=== PATIENT | male | born 1975 | race American Indian/Alaskan Native ===

== ENCOUNTER 2020-10-31 17:30 | Emergency (ER) | payer OTHER ==
[2020-10-31 17:46] VITALS: BP 152/100
--- NOTE | 2020-10-31 19:31 | Event Note ---
ED Screening Note Date of service: 10/31/20 Time: 19:28 ED Screening Note: 45-year-old -[place] male with no past medical history presents to the emergency room reporting dizziness and near syncopal moment. Patient states that this happened earlier today. He has had this happen in the past along long time ago. He denies any past medical history. He denies any fall no fever no chills. He does admit to tingling all over. Currently takes no medications on a daily basis has no known drug allergies. Family history of hypertension. This initial assessment/diagnostic orders/clinical plan/treatment(s) is/are subject to change based on patients health status, clinical progression and re- assessment by fellow clinical providers in the ED. Further treatment and workup at subsequent clinical providers discretion. Patient/guardian urged not to elope from the ED as their condition may be serious if not clinically assessed and managed. Initial orders include:
[2020-10-31 20:04] LABS: Basophils # (Auto) 0.1 K/mm3 (0.0-0.1); Basophils % (Auto) 0.6 % (0.0-1.8); Eosinophils # (Auto) 0.1 K/mm3 (0.0-0.4); Eosinophils % (Auto) 1.1 % (0.0-4.3); Hematocrit 48.4 % (35.5-45.6); Hemoglobin 16.7 gm/dl (11.8-15.2); Lymphocytes # (Auto) 1.2 K/mm3 (1.2-5.4); Lymphocytes % (Auto) 13.2 % (13.4-35.0); Mean Corpuscular HGB Conc 35 % (32-34); Mean Corpuscular Volume 93 fl (84-94); Monocytes # (Auto) 0.5 K/mm3 (0.0-0.8); Monocytes % (Auto) 6.1 % (0.0-7.3); Platelet Count 178 K/mm3 (140-440); Red Blood Count 5.23 M/mm3 (3.65-5.03); Red Cell Distribution Width 13.2 % (13.2-15.2)
[2020-10-31 20:25] LABS: Creatine Kinase MB 1.5 ng/mL (0.0-4.0)
[2020-10-31 20:27] LABS: Alanine Aminotransferase 20 units/L (7-56); Albumin 4.4 g/dL (3.9-5); BUN/Creatinine Ratio 14; Blood Urea Nitrogen 11 mg/dL (9-20); Calcium 9.4 mg/dL (8.4-10.2); Hemolysis Index 38
[2020-10-31 20:48] LABS: Bilirubin,Urine NEG (Negative); Blood,Urine NEG (Negative); Color,Urine Straw (Yellow); Protein,Urine <15 mg/dL mg/dL (Negative); RBC,Urine < 1.0 /HPF (0.0-6.0); Urobilinogen,Urine < 2.0 mg/dL (<2.0)
[2020-10-31 20:50] LABS: WBC,Urine < 1.0 /HPF (0.0-6.0)
[2020-10-31 20:54] LABS: Amphetamine Screen,Urine Negative; Benzodiazepines Screen,Urine Negative; Cannabinoid Screen,Urine Negative; Cocaine Screen,Urine Negative; Methadone Screen,Urine Negative; Opiate Screen,Urine Negative
--- NOTE | 2020-11-01 11:44 | Electrocardiograph Report ---
[facility] Test Date: 2020-10-31 Test Time: 17:55:18 Pat Name: ANA KING Department: Room: Gender: M Sternman: PAOLA : 1975 Requested By: MATTHEW GUNN Order Number: [id number] Reading MD: Munira Carlos Measurements Intervals [place] Rate: 73 P: 13 CO: 150 QRS: -4 QRSD: 94 T: 59 QT: 374 QTc: 413 Interpretive Statements Sinus rhythm Normal ECG No previous ECG available for comparison Electronically Signed On 11-01-2020 11:43:53 EDT by Munira Carlos
== END 2020-11-01 05:00 | disposition left against medical advice (07) ==
LOC: ED 17:30
DX: R55 Syncope and collapse (principal); Z53.21 Procedure and treatment not carried out due to patient leaving prior to being seen by health care provider
CPT/HCPCS: 36415; 80053; 80307; 81001; 82550; 82553; 84484; 85025; 93005

== ENCOUNTER 2020-11-01 13:47 | Emergency (ER) | payer OTHER ==
[2020-11-01 14:04] VITALS: BP 131/86
--- NOTE | 2020-11-01 16:41 | Emergency Department Report ---
ED General Adult HPI - General Chief complaint: Dizziness Stated complaint: LIGHTHEADED/DIZZY Time Seen by Provider: 11/01/20 16:26 Source: patient Mode of arrival: Ambulatory Limitations: No Limitations - History of Present Illness Initial comments: Patient is a 45-year-old male who presents emergency room with complaints of intermittent episodes of lightheadedness that have been ongoing for 2 years. He states that it felt like it got a little worse yesterday and that is why he presented to the emergency department. He states that he has been seen for this complaint multiple times. He states that he went to a [facility] 2 years ago and was advised everything was normal. He states he has an upcoming appointment with his primary care doctor. He states that he left before being seen in the emergency department yesterday and presents today for results of his test. He states he feels much better today and does not have any significant dizziness or lightheadedness. He denies any syncope, headache, vomiting, diarrhea, fever, cough, shortness of breath, chest pain, abdominal pain, numbness, weakness, speech disturbance, gait disturbance, vision changes. He denies any recent travel, sick contacts, recent surgery, recent immobilization. Past medical history of asthma. No allergies medications. Patient had a full work-up in the emergency department yesterday 10/31/2020, EKG was within normal limits, no signs of arrhythmia, labs were normal, normal troponin, normal CK/CK-MB, normal electrolytes, no anemia, UA within normal limits, no signs of dehydration, UDS was negative. - Related Data Allergies Allergy/AdvReac Type Severity Reaction Status Date / Time No Known Allergies Allergy Unverified 10/31/20 17:41 ED Review of Systems ROS: Stated complaint: LIGHTHEADED/DIZZY Other details as noted in HPI Comment: All other systems reviewed and negative ED Past Medical Hx - Past Medical History Hx Asthma: Yes - Surgical History Past Surgical History?: No ED Physical Exam - General Limitations: No Limitations General appearance: alert, in no apparent distress - Head Head exam: Present: atraumatic, normocephalic - Eye Eye exam: Present: normal appearance, PERRL, EOMI. Absent: conjunctival injection, periorbital swelling, periorbital tenderness Pupils: Present: normal accommodation - ENT ENT exam: Present: mucous membranes moist - Neck Neck exam: Present: normal inspection, full ROM. Absent: tenderness, meningismus - Respiratory Respiratory exam: Present: normal lung sounds bilaterally. Absent: respiratory distress, wheezes, rales, rhonchi, stridor, chest wall tenderness, accessory mus kenny use, decreased breath sounds, prolonged expiratory - Cardiovascular Cardiovascular Exam: Present: regular rate, normal rhythm, normal heart sounds. Absent: systolic murmur, diastolic murmur, rubs, gallop - Neurological Exam Neurological exam: Present: alert, oriented X3, CN II-XII intact, normal gait. Absent: motor sensory deficit - Expanded Neurological Exam Expanded Patient oriented to: Present: person, place, time Speech: Present: fluid speech Cranial nerves: EOM's Intact: Normal, Gag Reflex: Normal, Facial Sensation: Normal Cerebellar function: Finger to Nose: Normal, Heel to Chen: Normal, Romberg: Normal Sensory exam: Upper Extremity Light Touch: Normal, Upper Extremity Pin Prick: Normal, Upper Extremity Temperature: Normal, UE 2 Point Discrimination: Normal, Lower Extremity Light Touch: Normal, Lower Extremity Pin Prick: Normal, Lower Extremity Temperature: Normal, LE 2 Point Discrimination: Normal Motor strength exam: RUE: 5, LUE: 5, RLE: 5, LLE: 5 Best Eye Response ([place]): (4) open spontaneously Best Motor Response ([place]): (6) obeys commands Best Verbal Response ([place]): (5) oriented [place] Total: 15 - Psychiatric Psychiatric exam: Present: normal affect, normal mood - Skin Skin exam: Present: warm, dry, intact ED Course Vital Signs 11/01/20 14:03 Temperature 98.6 F Pulse Rate 85 Respiratory 17 Rate Blood Pressure 131/86 [Right] O2 Sat by Pulse 97 Oximetry ED Medical Decision Making - Medical Decision Making Patient is a 45-year-old male who presents emergency room with complaints of intermittent episodes of lightheadedness that have been ongoing for 2 years. He states that it felt like it got a little worse yesterday and that is why he presented to the emergency department. He states that he has been seen for this complaint multiple times. He states that he went to a [facility] 2 years ago and was advised everything was normal. He states he has an upcoming appointment with his primary care doctor. He states that he left before being seen in the emergency department yesterday and presents today for results of his test. He states he feels much better today and does not have any significant dizziness or lightheadedness. He denies any syncope, headache, vomiting, diarrhea, fever, cough, shortness of breath, chest pain, abdominal pain, numbness, weakness, speech disturbance, gait disturbance, vision changes. He denies any recent travel, sick contacts, recent surgery, recent immobilization. Past medical history of asthma. No allergies medications. Patient had a full work-up in the emergency department yesterday 10/31/2020, EKG was within normal limits, no signs of arrhythmia, labs were normal, normal troponin, normal CK/CK- MB, normal electrolytes, no anemia, UA within normal limits, no signs of dehydration, UDS was negative. Patient's vitals are normal. He is currently asymptomatic. He has no neurological deficits on exam. Will be referred to primary care doctor and [facility]. Discuss strict return precautions. Advised patient Increase your fluid intake. Follow-up with your primary care doctor. Follow-up with a [facility]. Return to emergency room for any new or worsening symptoms. Critical care attestation.: If time is entered above; I have spent that time in minutes in the direct care of this critically ill patient, excluding procedure time. ED Disposition Clinical Impression: Lightheadedness Disposition: DC-01 TO HOME OR SELFCARE Is pt being admited?: No Does the pt Need Aspirin: No Condition: Stable Instructions: Near-Syncope, [id number] Additional Instructions: Increase your fluid intake. Follow-up with your primary care doctor. Follow-up with a [facility]. Return to emergency room for any new or worsening symptoms. Referrals: AARON BURKETT MD [Staff Physician] - 2-3 Days your, primary care doctor [Other] - 2-3 Days Forms: Work/School Release Form(ED) Time of Disposition: 16:40 Print Language: PORTUGUESE
== END 2020-11-01 16:50 | disposition home or self-care (01) ==
LOC: ED 13:47
DX: R42 Dizziness and giddiness (principal); J45.909 Unspecified asthma, uncomplicated
CPT/HCPCS: 99281